=== PATIENT | female | born 1950 ===

== ENCOUNTER 2018-10-01 07:04 | Day surgery (SDC) | payer OTHER ==
[~2018-10-01 07:04] MED LIST: ALENDRONATE SOD70 MG PO; CLONAZEPAM2 MG PO; DICY20TA PO; IMODIUM A-D2 MG PO; INTESTINEX680 MG PO; ISOSORBIDE MONO60 MG PO; LIDOCAINE HCL4 ML TP; LISINOPRIL10 MG PO; PANTOPRAZOLE SO40 MG PO; TRAM1TAB98 PO; VITAMIN D-32000 UNIT PO
== END 2018-10-01 11:35 | disposition home or self-care (01) ==
LOC: AMB-ENDOS 07:04
DX: D12.0 Benign neoplasm of cecum (principal); K57.30 Diverticulosis of large intestine without perforation or abscess without bleeding; K64.8 Other hemorrhoids